=== PATIENT | male | born 1985 | race African-American/Black ===

== ENCOUNTER 2018-07-07 07:54 | Emergency (ER) | payer OTHER ==
[2018-07-07] MEDS: DIPHTH/TET/ACEL PERTUSS (ADULT) 0.5 ML VIAL IM* (09:28)
[2018-07-07] MEDS: LIDOCAINE 1% (MDV) 20 ML INJ SC (09:28)
[2018-07-07 10:50] LABS: HAAIG REFLEX REFLEX FILED
[2018-07-07 12:26] LABS: HEPATITIS B SURFACE ANTIGEN NEGATIVE (NEGATIVE)
[2018-07-07 12:44] LABS: HEPATITIS B CORE ANTIBODY NEGATIVE (NEGATIVE); HEPATITIS C VIRAL ANTIBODY NEGATIVE (NEGATIVE); HIV 1&2 ANTIBODY NEGATIVE (NEGATIVE)
== END 2018-07-07 10:52 | disposition home or self-care (01) ==
LOC: FTE 07:54
DX: S01.111A Laceration without foreign body of right eyelid and periocular area, initial encounter (principal); F17.210 Nicotine dependence, cigarettes, uncomplicated; W25.XXXA Contact with sharp glass, initial encounter; Y92.9 Unspecified place or not applicable; Z23 Encounter for immunization
CPT/HCPCS: 12013; 36415; 86703; 86704; 86709; 86803; 87340; 87536; 90471; 90715; 99283-25